=== PATIENT | male | born 1965 | race Caucasian/White ===

== ENCOUNTER 2018-07-08 09:18 | Day surgery (SDC) | payer OTHER ==
[~2018-07-08 09:18] MED LIST: ALFUZOSIN HCL E10 MG PO; ANTI-FUNGAL12 TOP; BACTRIM DS1 TAB PO; FRANKINCENSE; KETOCONAZOLE2 % EX; LEVOTHYROXIN112 MC1 PO; METOPROLOL TART50 MG PO; NORCO1 TA1 PO; SYNTHROID100 MCG PO; TORADOL PO; TRIAMCINOLON0.11 EX; VARIVAX SC
[2018-07-08 13:32] VITALS: BP 96/59
== END 2018-07-08 13:45 | disposition home or self-care (01) | DRG 951 ==
LOC: ENDO 09:18
PROVIDERS: ATTEND Surgery
PROC: 0DBN8ZX Excision of Sigmoid Colon, Via Natural or Artificial Opening Endoscopic, Diagnostic (ICD-10-PCS; principal; 2018-07-08)
PROC: 0DBL8ZX Excision of Transverse Colon, Via Natural or Artificial Opening Endoscopic, Diagnostic (ICD-10-PCS; 2018-07-08)
DX: Z12.11 Encounter for screening for malignant neoplasm of colon (principal); K63.5 Polyp of colon; I10 Essential (primary) hypertension; E03.9 Hypothyroidism, unspecified; N40.0 Benign prostatic hyperplasia without lower urinary tract symptoms; F17.200 Nicotine dependence, unspecified, uncomplicated; Z86.010 Personal history of colon polyps

== ENCOUNTER 2022-08-23 12:46 | Emergency (ER) | payer OTHER ==
[~2022-08-23] VITALS: Ht 177.8 cm; Wt 102.0 kg
[2022-08-23] VITALS (10 sets, daily range): BP systolic 121–155; BP diastolic 72–90
[2022-08-23 14:22] LABS: URINE BILIRUBIN - DIPSTICK NEGATIVE (NEGATIVE); URINE BLOOD DIPSTICK NEGATIVE (NEGATIVE); URINE COLOR YELLOW; URINE GLUCOSE - DIPSTICK NEGATIVE (NEGATIVE); URINE KETONE NEGATIVE (NEGATIVE); URINE LEUK ESTERASE NEGATIVE (NEGATIVE); URINE PH 6.5 (4.5-8.0); URINE PROTEIN - DIPSTICK NEGATIVE (NEG-TRACE); URINE UROBILINOGEN - DIPSTICK 0.2 E.U./dL (0.2)
[2022-08-23 14:32] LABS: URINE NITRITE - DIPSTICK NEGATIVE (Negative)
[2022-08-23] MEDS ORDERED: TAMSULOSIN0.4 MG PO (14:38)
== END 2022-08-23 14:58 | disposition home or self-care (01) | DRG 726 ==
LOC: ED 12:46
PROVIDERS: Nurse Practitioner
PROC: 0T9B70Z Drainage of Bladder with Drainage Device, Via Natural or Artificial Opening (ICD-10-PCS; principal; 2022-08-23)
DX: N40.1 Benign prostatic hyperplasia with lower urinary tract symptoms (principal); R33.8 Other retention of urine; I10 Essential (primary) hypertension; F17.290 Nicotine dependence, other tobacco product, uncomplicated